=== PATIENT | male | born 1975 | race Hispanic/Latino ===

== ENCOUNTER 2021-10-15 15:30 | Emergency (ER) | payer BC ==
[~2021-10-15] VITALS: Ht 172.7 cm; Wt 80.7 kg
== END 2021-10-15 19:33 | disposition home or self-care (01) ==
LOC: ER 15:43
DX: R50.9 Fever, unspecified (principal); U07.1 COVID-19; R05.9 Cough, unspecified
CPT/HCPCS: 99283; U0002